=== PATIENT | female | born 1995 | race Hispanic/Latino ===

== ENCOUNTER → 2019-07-22 12:46 | Outpatient (CLI) | payer MEDICAID, SELFPAY ==
--- NOTE | ~2019-07-22 | US_ITS ---
EXAMINATION: US OB <= 14 weeks fetus DATE: 07/22/2019 13:16 INDICATION: First trimester dating TECHNIQUE: Real-time pelvic transabdominal and transvaginal ultrasound was performed. COMPARISON: None. FINDINGS: The uterus measures 12.5 x 6.2 x 9.0 cm. There is an intrauterine gestational sac. A yolk sac is identified. heart motion is identified measuring 173 beats per minute (bpm) by M-mode Do ppler. The crown rump length measures 2.4 cm , which correlates with an estimated gestational a ge of 9 weeks and 1 day(s) (+/-) 6 day(s). The right ovary measures 5.3 x 3.2 x 4.2 cm and contains a 3.8 cm cyst. The left ovary measures 2.3 x 2.1 x 2.2 cm. There is no free fluid in the pelvis. IMPRESSION: 1. Live intrauterine with an estimated gestational age of 9 weeks and 1 day(s) (+/-) 6 day( s) and an estimated delivery date of 02/23/2020. Reviewed, dictated and finalized at location B. IMPRESSION: 1. Live intrauterine with an estimated gestational age of 9 weeks and 1 day(s) (+/-) 6 day(s) and an estimated delivery date of 02/23/2020.
== END ==
PROVIDERS: Visit Provider Nurse Practitioner
DX: Z36.9 Encounter for antenatal screening, unspecified (principal); Z3A.09 9 weeks gestation of pregnancy
CPT/HCPCS: 76801

== ENCOUNTER → 2019-10-25 13:10 | Outpatient (CLI) | payer MEDICAID, SELFPAY ==
--- NOTE | ~2019-10-25 | US_ITS ---
EXAMINATION: US OB >= 14 weeks Fetus DATE: 10/25/2019 13:47 INDICATION: Second trimester anatomic survey TECHNIQUE: Real-time ultrasound of the pelvis was performed. COMPARISON: 07/22/2019 FINDINGS: There is a single living fetus in vertex presentation. The placenta is anterior and 4.5 cm from the i nternal cervical os. heart rate is 142 beats per minute (bpm). cardiac activity and feta l movement are noted. The amniotic fluid index is subjectively normal. A 3.5 cm right ovarian cyst is again noted. The following anatomy was identified as normal: 4 chamber heart 3 vessel cord cord insertion kidneys urinary bladder stomach spine diaphragm ventricles cisterna magna cerebellum The following biometric data were obtained: Biparietal diameter (BPD): 5.7 cm; head circumference (HC): 21.7 cm; abdominal circumference (AC): 19 .1 cm; femur length (FL): 4.1 cm. These measurements are concordant. Estimated weight is 619 g +/- 92 g, which correlates with the 87th percentile when 02/23/2020 i s used as estimated date of delivery. As single measurements, these parameters are each equal to the following estimated gestational ages w ith ranges of +/- 2 standard deviations: BPD: 23 weeks 5 days ( 22 weeks 0 days - 25 weeks 3 days). HC: 23 weeks 6 days ( 22 weeks 2 days - 25 weeks 2 days). AC: 23 weeks 6 days ( 21 weeks 6 days - 25 weeks 6 days). FL: 23 weeks 3 days ( 21 weeks 5 days - 25 weeks 2 days). estimated gestational age based solely on measurements from this exam is 23 weeks 5 days +/- 1 weeks 5 days. IMPRESSION: 1. Single living fetus in vertex presentation. 2. Estimated weight is 619 g +/- 92 g, which correlates with the 87th percentile when 0 is used as estimated date of delivery. Reviewed, dictated and finalized at location A. IMPRESSION: 1. Single living fetus in vertex presentation. 2. Estimated weight is 619 g +/- 92 g, which correlates with the 87th per centile when 02/23/2020 is used as estimated date of delivery.
== END ==
PROVIDERS: Visit Provider Obstetrics & Gynecology Gynecology
DX: Z36.9 Encounter for antenatal screening, unspecified (principal); Z3A.23 23 weeks gestation of pregnancy
CPT/HCPCS: 76805

== ENCOUNTER 2020-02-18 01:47 | Inpatient (IN) | payer BC, OTHER, SELFPAY ==
[2020-02-18] VITALS (197 sets, daily range): BP systolic 98–156; BP diastolic 64–107; PULSE 84–140; RESP 18–20; TEMP 36.4–38.1; O2SAT 97–100; BMI 32.2
[2020-02-18 03:15] LABS: Basophils Percent Auto 0.3 % (0.2-1.2); Eosinophils Absolute Auto 0.2 K/mm3 (0-0.3); Eosinophils Percent Auto 2.3 % (0-4.4); Hematocrit 38.3 % (37.0-47.0); Hemoglobin 13.3 g/dL (12.0-15.0); Immature Granulocyte Absolute 0.02 K/mm3 (0.00-0.031); Immature Granulocyte Percent A 0.3 % (0-0.5); Lymphocytes Absolute Auto 3.11 K/mm3 (0.9-3.2); Lymphocytes Percent Auto 39.6 % (18.3-44.2); Mean Corpuscular HGB Conc 34.7 g/dl (32-36); Mean Corpuscular Hemoglobin 30.8 pg (26-34); Mean Corpuscular Volume 88.7 fl (80-100); Monocytes Absolute Auto 0.5 K/mm3 (0.1-0.6); Monocytes Percent Auto 5.9 % (2.6-8.5); Neutrophils Absolute Auto 4.1 K/mm3 (1.3-6.7); Neutrophils Percent Auto 51.6 % (45.5-73.1); Platelet Count Result 176 k/mm3 (150-375); Red Blood Count 4.32 M/mm3 (4.2-5.4); Red Cell Distribution Width 12.3 % (11.5-14.5); White Blood Count 7.9 K/mm3 (4.5-10.0)
[2020-02-18] MEDS: LACTATED RINGERS 1,000 ML 125 ML IV CONT ×3 (03:33→09:28)
[2020-02-18] MEDS: ceFAZolin 2 GM/D5W 50 ML 2 GM/50 ML BAG IVPB (03:37)
--- NOTE | 2020-02-18 04:12 | WPDANESEPP ---
Anes - Eval Pre Procedure Procedure: labor epidural Date/Time: 02/18/20 04:12 Surgeon: corinne Pre Op Diagnosis: SROM Patient Data Age: 24 Gender: F Height: Weight: Last Vital Signs Temp 36.7 C 02/18/20 03:00 Pulse 97 02/18/20 04:01 BP 133/84 02/18/20 04:01 Allergies Allergy/AdvReac Type Severity Reaction Status Date / Time Penicillins Allergy Severe Hives Verified 02/12/20 15:47 Home Medications Medication Instructions Recorded Confirmed Type PNV cmb#95-ferrous fumarate-FA 1 tablet PO DAILY 02/12/20 02/12/20 History [] aspirin 81 mg PO DAILY 02/12/20 02/12/20 History ergocalciferol (vitamin D2) 1,250 mcg PO WEEKLY 02/12/20 02/12/20 History [Vitamin D2] Laboratory Tests 02/18/20 02/18/20 02/18/20 03:03 03:03 03:03 WBC 7.9 K/mm3 K/mm3 (4.5-10.0) RBC 4.32 M/mm3 M/mm3 (4.2-5.4) Hgb 13.3 g/dL g/dL (12.0-15.0) Hct 38.3 % % (37.0-47.0) MCV 88.7 fl fl (80-100) MCH 30.8 pg pg (26-34) MCHC 34.7 g/dl g/dl (32-36) RDW 12.3 % % (11.5-14.5) Plt Count 176 k/mm3 k/mm3 (150-375) MPV 12.0 fl H fl (7.4-10.4) Immature Gran % (Auto) 0.3 % % (0-0.5) Neut % (Auto) 51.6 % % (45.5-73.1) Lymph % (Auto) 39.6 % % (18.3-44.2) Barber % (Auto) 5.9 % % (2.6-8.5) Eos % (Auto) 2.3 % % (0-4.4) Baso % (Auto) 0.3 % % (0.2-1.2) Lymph # (Auto) 3.11 K/mm3 K/mm3 (0.9-3.2) Barber # (Auto) 0.5 K/mm3 K/mm3 (0.1-0.6) Eos # (Auto) 0.2 K/mm3 K/mm3 (0-0.3) Baso # (Auto) 0.0 K/mm3 K/mm3 (0.0-0.1) Abs Immat Gran (auto) 0.02 K/mm3 K/mm3 (0.00-0.031) Absolute Neuts (auto) 4.1 K/mm3 K/mm3 (1.3-6.7) Absolute Nucleated RBC 0.0 K/mm3 K/mm3 (0.0-0.012) Nucleated RBC % 0.0 % % (0.0-0.2) Sodium Potassium Chloride Carbon Dioxide Anion Gap BUN Creatinine Estim Creat Clear Calc Estimated GFR Glucose Uric Acid Calcium Total Bilirubin AST ALT Alkaline Phosphatase Total Protein Albumin RPR Pending Blood Type O Positive Antibody Screen Negative 02/18/20 04:07 WBC RBC Hgb Hct MCV MCH MCHC RDW Plt Count MPV Immature Gran % (Auto) Neut % (Auto) Lymph % (Auto) Barber % (Auto) Eos % (Auto) Baso % (Auto) Lymph # (Auto) Barber # (Auto) Eos # (Auto) Baso # (Auto) Abs Immat Gran (auto) Absolute Neuts (auto) Absolute Nucleated RBC Nucleated RBC % Sodium Pending Potassium Pending Chloride Pending Carbon Dioxide Pending Anion Gap Pending BUN Pending Creatinine Pending Estim Creat Clear Calc Pending Estimated GFR Pending Glucose Pending Uric Acid Pending Calcium Pending Total Bilirubin Pending AST Pending ALT Pending Alkaline Phosphatase Pending Total Protein Pending Albumin Pending RPR Blood Type Antibody Screen Patient hx anesthesia problems: none Family hx anesthesia problems: none PMFSH Family History Family History (Updated 02/12/20 @ 15:49 by Hermilo Prather RN) Other No pertinent family history Social History Social History Substance use: never Gender identity (if verbalized by the patient): Female Spiritual care concerns: No Exam Day of Procedure 02/18/20 04:12
[2020-02-18 04:24] LABS: Alanine Aminotransferase 14 U/L (4-35); Albumin Level 3.7 g/dL (3.5-5.1); Alkaline Phosphatase 228 U/L (38-126); Anion Gap 9 mmol/L (8-16); Aspartate Amino Transferase 28 U/L (14-36); Blood Urea Nitrogen 10 mg/dL (7-17); Calcium 9.2 mg/dL (8.4-10.2); Carbon Dioxide 23 mmol/L (22-30); Chloride 105 mmol/L (98-107); Estimated Glomerular Filt Rate > 60; Glucose 82 mg/dL (65-105); Potassium 3.7 mmol/L (3.4-5.0); Sodium 137 mmol/L (137-145); Uric Acid 4.4 mg/dL (2.5-7.5)
--- NOTE | 2020-02-18 04:27 | LDADM ---
This patient, Chinyere Uribe, was admitted to Labor/Delivery/Recovery 104 on 02/18/20 at 01:47. Plans for labor, pain management and were discussed with patient. Patient/family oriented to hospital policies and general routines including ID bracelet, bed and alarms, visiting hours, pain management, procedures, bathroom and other care routines, personal items, smoking policy, room service/diet and guest tray routines, security routines, and visiting hours. Patient/Family are encouraged to report perceived risks to care and to ask questions if they do not understand what they are told or what they should do. See OBIX for further documentation.
[2020-02-18] MEDS: LABETALOL HCL 100 MG TABLET PO (08:25)
[2020-02-18 09:32] LABS: Rapid Plasma Reagin Non-Reactive (NonReactive)
[2020-02-18] MEDS: SODIUM CHLORIDE 0.9% IV 300 ML 600 ML I-UTERINE (10:11)
[2020-02-18] MEDS: GENTAMICIN 60 MG/50 ML NS 60 MG/50 ML BAG 100 MG IVPB (10:27)
[2020-02-18] MEDS: OXYTOCIN 30 UNITS/NS 500 ML 30 UNITS/500 ML BAG IV CONT (10:30)
[2020-02-18] MEDS: OXYTOCIN 30 UNITS/NS 500 ML 30 UNITS/500 ML BAG 125 UNITS IV CONT (15:42)
--- NOTE | 2020-02-18 15:57 | PM.OBPRVD ---
OB - Delivery Note Procedure Delivery date: 02/18/20 Procedure: Intrapartal events: Febrile and Chorioamnionitis Induction method: none Delivery augmentation: pitocin Delivery monitor: external FHT and internal uterine Route of delivery: Laceration Description: None Specimen: Yes (placenta) Estimated blood loss (mL): 100 Anesthesia type: Epidural Disposition: floor Baby Weeks of gestation at delivery: 39 Infant gender: Male Weight (pounds): 7 Weight (ounces): 7 presentation: vertex Placenta delivery description: Spontaneous cord vessel description: 3 Vessels score one minute: 8 score five minutes: 9 Narrative: meconium stained fluid noted at delivery of head
--- NOTE | 2020-02-18 15:59 | PM.OBDSVD ---
DS: Admitting Diagnosis Admitting Diagnosis Admitting Diagnosis: SROM DS: Discharge Diagnosis Discharge Diagnosis (1) (normal spontaneous vaginal delivery): Code(s): O80 - Encounter for full-term uncomplicated delivery Status: Acute OB - DS: Summary OB Procedures : Ultrasound OB Procedures Intrapartum: Spontaneous Vag Delivery OB Procedures: : None Peripartum Data Infant Delivery Method: Natural Vaginal Laceration description: None complications: none Status at Discharge Functional status at discharge: independent ambulation Overall status at discharge: patient is progressing back to baseline Time Spent with Patient Time attestation: Total time spent providing and/or coordinating discharge services: DS: Data Data Completed and Pending Pending studies at discharge: Pending at discharge 02/18/20 15:31 Surgical [PTH] Routine Labs on day of discharge: Labs from last 24 hours 02/18/20 02/18/20 02/18/20 04:07 03:03 03:03 WBC RBC Hgb Hct MCV MCH MCHC RDW Plt Count MPV Immature Gran % (Auto) Neut % (Auto) Lymph % (Auto) Hand % (Auto) Eos % (Auto) Baso % (Auto) Lymph # (Auto) Hand # (Auto) Eos # (Auto) Baso # (Auto) Abs Immat Gran (auto) Absolute Neuts (auto) Absolute Nucleated RBC Nucleated RBC % Sodium 137 Potassium 3.7 Chloride 105 Carbon Dioxide 23 Anion Gap 9 BUN 10 Creatinine 0.70 Estim Creat Clear Calc Not Reportable Estimated GFR > 60 Glucose 82 Uric Acid 4.4 Calcium 9.2 Total Bilirubin 1.0 AST 28 ALT 14 Alkaline Phosphatase 228 H Total Protein 7.0 Albumin 3.7 RPR Non-reactive Blood Type O Positive Antibody Screen Negative 02/18/20 03:03 WBC 7.9 RBC 4.32 Hgb 13.3 Hct 38.3 MCV 88.7 MCH 30.8 MCHC 34.7 RDW 12.3 Plt Count 176 MPV 12.0 H Immature Gran % (Auto) 0.3 Neut % (Auto) 51.6 Lymph % (Auto) 39.6 Hand % (Auto) 5.9 Eos % (Auto) 2.3 Baso % (Auto) 0.3 Lymph # (Auto) 3.11 Hand # (Auto) 0.5 Eos # (Auto) 0.2 Baso # (Auto) 0.0 Abs Immat Gran (auto) 0.02 Absolute Neuts (auto) 4.1 Absolute Nucleated RBC 0.0 Nucleated RBC % 0.0 Sodium Potassium Chloride Carbon Dioxide Anion Gap BUN Creatinine Estim Creat Clear Calc Estimated GFR Glucose Uric Acid Calcium Total Bilirubin AST ALT Alkaline Phosphatase Total Protein Albumin RPR Blood Type Antibody Screen Discharge Plan Discharge Attending physician on discharge: Melia Kothari Discharging Clinician: Melia Kothari Anticipated Discharge Date/Time: 02/20/20 16:00 Patient Disposition: Home, Self-Care Activity: may shower and pelvic rest Diet: regular Patient Instructions: Antibiotic Form Stand Alone Forms: General Discharge Information Follow-up/Referrals: Jacques Castellanos MD [Physician] - 6 Weeks Discharge Medications: Continued ergocalciferol (vitamin D2) [Vitamin D2] 1,250 mcg (50,000 unit) Capsule 1,250 mcg PO WEEKLY RF: 0 PNV cmb#95-ferrous fumarate-FA [] 28 mg iron- 800 mcg Tablet 1 tablet PO DAILY RF: 0 Discontinued aspirin 81 mg Tablet 81 mg PO DAILY RF: 0 Date of admission: 02/18/20 01:47 Primary Care Provider: PHYSICIAN,FIRER WATERTENDER Admitting Provider: Jacques Castellanos Attending physician on admission: Jacques Castellanos Condition: Stable Care Plan Goals: plans condoms for control
[2020-02-18] MEDS: ACETAMINOPHEN 500 MG TABLET 1000 MG PO (16:06)
--- NOTE | 2020-02-18 17:34 | OBPPTRN ---
Patient transferred to post room # 288 via wheelchair. Support person present. Oriented to unit, room, information board, rooming in, admission packet and security measures. Patient verbalizes understanding.
[2020-02-19] MEDS: ACETAMINOPHEN 325 MG TABLET 650 MG PO (00:12)
[2020-02-19 06:16] LABS: Hematocrit 31.4 % (37.0-47.0); Hemoglobin 10.5 g/dL (12.0-15.0)
--- NOTE | 2020-02-19 08:42 | WPDANLDPN2 ---
Anes-Prog Note L&D Date/Time: 02/19/20 08:42 Comfortable throughout: labor and delivery Neuraxial method: epidural Epidural/Spinal procedure site: clean & non-tender Neuro status: Neuro function grossly intact. Cardiovascular status: normal Respiratory status: normal Airway patency: baseline Mental status: baseline Post-Op hydration status: normal Vital Signs: Last Vital Signs Temp 37.2 C 02/18/20 19:55 Pulse 91 02/18/20 19:55 Resp 18 02/18/20 19:55 BP 105/70 02/18/20 19:55 Pulse Ox 98 02/18/20 19:55 Pain score (VAS): 0/10 I/O: Intake & Output 02/18/20 02/19/20 02/19/20 23:59 07:59 15:59 Intake Total 1000 Output Total 538 Balance 462 Post-procedural complaints: none Patient feedback: Patient satisfied with anesthetic care.
[2020-02-19 09:35] VITALS: BP 114/74; PULSE 90; RESP 16; TEMP 36.5; O2SAT 99
[2020-02-19] MEDS: DOCUSATE SODIUM 100 MG CAPSULE PO (09:41)
[2020-02-19] MEDS: IBUPROFEN 600 MG TABLET PO (09:41)
[2020-02-19] MEDS: MULTIVIT/MIN/PREN/FOL AC/IRON TABLET 1 TAB PO (09:41)
--- NOTE | 2020-02-19 10:49 | P.PNOB_ITS ---
OB - PN: Subj Subjective Date/time seen: 02/19/20 10:49 Patient comments: no complaints and pain well controlled baby status: other (under bililights as of last pm) OB - PN: Obj Data Labs CBC & Chem 7: 02/19/20 04:52 02/18/20 04:07 Labs: Laboratory Results - last 24 hr 02/19/20 04:52 Hgb 10.5 L Hct 31.4 L OB - PN A/P Plan day: 1 Plan: routine care Time Spent With Patient Time: Total time spent is greater than 50% in coordination of care (as docu mented) at patient's floor/unit and/or counseling patient: Exam : Bimanual exam- vagina & uterus: other (Uterus firm, nt @U)
[2020-02-19 19:00] VITALS: BP 129/84; PULSE 88; RESP 16; TEMP 36.5; O2SAT 100
[2020-02-20] MEDS: IBUPROFEN 600 MG TABLET PO ×2 (02:20→11:19)
--- NOTE | 2020-02-20 08:23 | PM.OBPNVD ---
OB - PN: Subj Subjective Date/time seen: 02/20/20 08:23 Patient comments: no complaints and pain well controlled baby status: other (still under bililights) OB - PN: Obj Data Labs CBC & Chem 7: 02/19/20 04:52 02/18/20 04:07 OB - PN A/P Plan day: 2 Plan: routine care and discharge home Comments: plans condoms Time Spent With Patient Time: Total time spent is greater than 50% in coordination of care (as documented) at patient's floor/unit and/or counseling patient: Exam : Bimanual exam- vagina & uterus: other (Uterus firm, nt @U)
[2020-02-20 08:45] VITALS: BP 121/81; PULSE 88; RESP 16; TEMP 36.4; O2SAT 99
[2020-02-20] MEDS: MULTIVIT/MIN/PREN/FOL AC/IRON TABLET 1 TAB PO (08:51)
[2020-02-20] MEDS: DOCUSATE SODIUM 100 MG CAPSULE PO (08:51)
--- NOTE | 2020-02-20 09:36 | PC.NURSE ---
Patient and FOB viewed the discharge video Mother & Baby Care, The First Two Weeks . They were given the opportunity and encouraged to ask questions. They verbalized understanding of information shared and has been given the mother/baby guide for home reference.
--- NOTE | 2020-02-21 12:10 | PC.NURSE ---
Consulted with patient,mother reports she wishes to pump to breast before discharge. Mother began pumping and supplemented EBM/jaundice due to jaundice. Reviewed feeding cues, frequencies, duration of feedings, feeding elimination flow sheet, and signs of adequate intake. Demonstrated stimulation techniques to wake infant for feeding. Assisted with infant to breast. Reviewed positioning/alignment in cross cradle, holding breast in U hold and guided asymmetrical latch on. Discussed rational for each. was able to latch correctly within a few attempts. Infant nursed eagerly, with steady draws and frequent swallowing noted. Reviewed signs of a correct latch, effective nursing and suck swallow ratio. was able to maintain latch without discomfort to mother. Nipple care reviewed. Suggested to stimulate infant while feeding to keep infant awake and nursing effectively for increased intake and to assist with maintaining deep latch. Discussed to continue to supplement after all feedings and when may need an increase in supplementation. Advised not to discontinue supplement until seen by follow up RN or ICP. Mother V/U. Mother is feeding as required and waking to feed if needed. is currently meeting outcomes for weight, output, jaundice and feeding frequencies. Mother states she feels confident to continue current feeding plan at home. Reviewed transition to breast milk, signs of adequate intake, and engorgement/relief. Instructed to call ICP if intake/output less than required. Reviewed regular medications mother is taking. Information provided per Connie. Reviewed community resources on the [facility] website and in the Mom/Baby guide. Information on outpatient services provided. Mother has no further questions at this time.
== END 2020-02-20 14:30 | disposition home or self-care (01) | DRG 560 ==
LOC: ANHLDR 16:01 → ANHOB2 02-19 16:40 → ANHLDR 02-22 09:14 → ANHOB2 02-22 09:14
PROVIDERS: Obstetrics & Gynecology; Admitting Provider Obstetrics & Gynecology Gynecology; Visit Provider Obstetrics & Gynecology Gynecology
DX: O77.0 Labor and delivery complicated by meconium in amniotic fluid (principal); Z37.0 Single live birth; Z3A.39 39 weeks gestation of pregnancy; O13.4 Gestational [pregnancy-induced] hypertension without significant proteinuria, complicating childbirth; O99.824 Streptococcus B carrier state complicating childbirth; O36.8330 Maternal care for abnormalities of the fetal heart rate or rhythm, third trimester, not applicable or unspecified; O75.2 Pyrexia during labor, not elsewhere classified
CPT/HCPCS: 36415; 80053; 84550; 85014; 85018; 85025; 86592; 86850; 86900; 86901; 88307; A9270; J0690; J1580; J2590; J2795; J7030; J7120